=== PATIENT | male | born 1960 ===

== ENCOUNTER 2021-09-26 11:54 | Emergency (ER) | payer OTHER | END 2021-09-26 13:30 | disposition home or self-care (01) | LOC: ER1 11:54 | DX: S61.215A Laceration without foreign body of left ring finger without damage to nail, initial encounter (principal); X58.XXXA Exposure to other specified factors, initial encounter; Y92.89 Other specified places as the place of occurrence of the external cause; Y99.0 Civilian activity done for income or pay | CPT/HCPCS: 12002; 99282 ==

== ENCOUNTER 2021-10-04 09:25 | Emergency (ER) | payer OTHER ==
[2021-10-04] MEDS ORDERED: BACTROBAN OINT22 GM EXT (10:32)
== END 2021-10-04 10:50 | disposition home or self-care (01) ==
LOC: ER1 09:25
DX: S61.215D Laceration without foreign body of left ring finger without damage to nail, subsequent encounter (principal); Z23 Encounter for immunization; Z88.0 Allergy status to penicillin; W23.0XXD Caught, crushed, jammed, or pinched between moving objects, subsequent encounter
CPT/HCPCS: 90471; 90715; 99281